=== PATIENT | female | born 1965 | race American Indian/Alaskan Native ===

== ENCOUNTER 2018-04-17 13:24 | Inpatient (IN) | payer MEDICAID ==
[2018-04-17 14:09] LABS: BASO % 0.8 % (0.0-2.0); EOS # 0.4 K/uL (0.0-0.7); EOS % 11.3 % (0.0-4.0); HCG,QUALITATIVE URINE NEGATIVE (NEGATIVE); HEMOGLOBIN 11.7 g/dL (11.0-16.0); LYMPH # 1.3 K/uL (1.0-4.3); LYMPH % 39.4 % (20.0-40.0); MEAN CELL VOLUME 87.6 fL (81.0-99.0); MEAN CORPUSCULAR HEMOGLOBIN 28.6 pg (27.0-31.0); MEAN CORPUSCULAR HGB CONC 32.7 g/dL (33.0-37.0); MEAN PLATELET VOLUME 7.7 fL (7.2-11.7); MONO # 0.3 K/uL (0.0-0.8); NEUT # 1.3 K/uL (1.8-7.0); NEUT % 38.5 % (50.0-75.0); NRBC % 0.3 % (0.0-2.0); RBC 4.09 Mil/uL (3.80-5.20); RED CELL DISTRIBUTION WIDTH 14.3 % (11.5-14.5); WHITE BLOOD COUNT 3.4 K/uL (4.8-10.8)
[2018-04-17 14:11] LABS: SQUAMOUS EPITHIAL 1 /hpf (0-5); URINE BACTERIA OCC (<OCC); URINE BILIRUBIN NEGATIVE (NEGATIVE); URINE BLOOD NEGATIVE (NEGATIVE); URINE CLARITY Hazy (Clear); URINE COLOR Yellow (YELLOW); URINE GLUCOSE (UA) NORMAL (Normal); URINE LEUKOCYTE ESTERASE 2+ Leu/uL (Negative); URINE PROTEIN NEGATIVE (NEGATIVE)
[2018-04-17 14:22] LABS: ALB/GLOB RATIO 0.8 (1.0-2.1); ALBUMIN 3.7 g/dL (3.5-5.0); ALT/SGPT 21 U/L (9-52); AST/SGOT 26 U/L (14-36); BLOOD UREA NITROGEN 13 mg/dL (7-17); GFR NON-AFRICAN AMERICAN > 60
[2018-04-17 14:45] LABS: BARBITURATES, UR NEGATIVE (NEGATIVE); BENZODIAZEPINES, UR NEGATIVE (NEGATIVE); PHENCYCLIDINE, UR NEGATIVE (NEGATIVE)
[2018-04-17 14:48] LABS: OPIATES, UR POSITIVE (NEGATIVE)
--- NOTE | 2018-04-17 15:10 | C.PDOC ---
History Of Present Illness 52 y/o female, w/PMhx of HIV, presents to the ER requesting detox from heroin and cocaine. Patient states that her last use was yesterday. Patient reports that her viral load CD4 count was checked last month and everything was "good." She notes that she has not been taking her antiviral medications in the " past few months." Denies IV drug use, ETOH use, and hx of seizures and/or withdrawals. Time Seen by Provider: 04/17/18 13:43 Chief Complaint (Nursing): Substance Abuse History Per: Patient History/Exam Limitations: no limitations Past Medical History Reviewed: Historical Data, Nursing Documentation, Vital Signs Vital Signs: Last Vital Signs Temp 98.5 F 04/17/18 13:29 Pulse 68 04/17/18 13:29 Resp 18 04/17/18 13:29 BP 106/75 04/17/18 13:29 Pulse Ox 98 04/17/18 13:29 - Medical History PMH: HIV Denies: Diabetes, Hepatitis, HTN, Seizures, Sexually Transmitted Disease Surgical History: No Surg Hx Family History: States: No Known Family Hx - Social History Hx Alcohol Use: Yes Hx Substance Use: Yes Review Of Systems Except As Marked, All Systems Reviewed And Found Negative. Physical Exam - Physical Exam Appears: Non-toxic, No Acute Distress, Other (thin, eating sandwich) Skin: Warm, Dry Head: Atraumatic, Normacephalic Eye(s): bilateral: Normal Inspection, EOMI Nose: Normal Oral Mucosa: Moist Neck: Normal ROM, Supple Chest: Symmetrical Cardiovascular: Rhythm Regular Respiratory: Normal Breath Sounds, No Rales, No Rhonchi, No Wheezing Gastrointestinal/Abdominal: Normal Exam, Soft, No Tenderness, No Guarding, No Rebound Extremity: Normal ROM Neurological/Psych: Oriented x3, Normal Speech ED Course And Treatment - Laboratory Results Result Diagrams: 04/17/18 14:01 04/17/18 14:01 O2 Sat by Pulse Oximetry: 98 (RA) Pulse Ox Interpretation: Normal Progress Note: Labs, UA, and HCG Qual. ordered. Patient was medically cleared for admisison and instructed to start antiviral medications again. Patient has been admitted under the service of for opiates. Disposition - Disposition Disposition: HOSPITALIZED Disposition Time: 17:00 Condition: STABLE - Clinical Impression Clinical Impression: Opioid use disorder, severe, dependence - PA / MATERIAL MAN / Resident Statement /DO has reviewed & agrees with the documentation as recorded. - Scribe Statement The provider has reviewed the documentation as recorded by the Joeibe Minor Olmos Provider Attestation All medical record entries made by the Joeibmichael were at my direction and personally dictated by me. I have reviewed the chart and agree that the record accurately reflects my personal performance of the history, physical exam, medical decision making, and the department course for this patient. I have also personally directed, reviewed, and agree with the discharge instructions and disposition.
--- NOTE | 2018-04-17 15:32 | PCM.BM ---
<Garrett Nelson - Last Filed: 04/17/18 15:31> Treatment Plan Problems - Problems identified on initial assessmt potential for opiate withdrawal Date Initiated: 04/17/18 Time Initiated: 15:31 Status: Active Treatment assets and liabiliti Patient Assests: cognitively intact Patient Liabilities: substance abuse, medical problems - Milieu Protocol Maintain good personal hygiene: daily Encourage regular showers, daily Remind patient to perform daily oral care, daily Assist patient to perform ADL's Maintain personal safety: every shift Educate patient to report safety concerns to staff, every shift Monitor environment for contraband/sharps Medication safety: Monitor for expected outcome, potential side effects: every shift, Assess barriers to learning: every shift, Assess readiness for medication education: every shift <Jaimie Lopez - Last Filed: 04/18/18 14:15> Family Contact Family involvement: Famliy/SO not involved - Goals for Treatment Patient goals for treatment: Complete detox and apply for inpatient rehab program. Discharge/Continuing Care - Education Needs Education Needs: Family Medication, Family Diagnosis/Disease Process, Family Placement options, Family Community resources, Patient Medication, Patient Diagnosis/Disease Process, Patient Coping Skills, Patient Anger Management skills, Patient Placement options, Patient Community resources - Discharge Discharge Criteria: Ability to care for self, No longer exhibiting s/s of withdrawal, Reduction of target symptoms Discharge to:: Substance Abuse Rehab - Treatment Team Participation Patient/Family/SO Statement: 04/18/18 14:16 "I wanna go inpatient after this..." Discussed with Family/SO: No Was Patient/Family/SO present at Treatment Team Meeting: Yes <María Elena Mejia - Last Filed: 04/19/18 08:53> - Diagnosis (1) Opioid use disorder, severe, dependence Status: Acute Interventions: 04/19/18 08:53 * Assess 7x/week regarding severity of withdrawal * Educate regarding risks, benefits, side effects and alternatives of medications * Use Motivational Interviewing for abstinence * Use CBT for relapse prevention * Medication management for withdrawal symptoms * Encourage medication assisted treatment *
[2018-04-17] MEDS ORDERED: Buprenorphine Hydrochloride 2 mg SL ONE ×2 (16:28→17:30)
[2018-04-18] MEDS ORDERED: Aluminum Hydroxide/Magnesium Hydroxide Susp (30 mL) PO PRN (08:51)
[2018-04-18] MEDS: Buprenorphine Hydrochloride 2 mg SL SCH (09:20)
--- NOTE | 2018-04-18 12:24 | PCM.PSYCH ---
Initial Psychiatric Evaluation - Initial Psychiatric Evaluation Type of Admission: Voluntary Legal Status: Capacity Chief Complaint (in patient's own words): "I want detox" History of Present Illness and Precipitating Events: She is seen, chart reviewed and case discussed She is apoor historian and due to withdrawals she was barely cooperative. Pt is a 52 year old female. Pt reports abusing heroin and crack cocaine on a daily basis, with last use of both substances on 04/16/18. Pt reports pattern of use as follows: pt uses 3 bags of heroin daily via intranasal use x2 years; $20 worth of crack cocaine is being smoked daily x2 years. Pt reports active w/d symptoms present: hot/cold flashes, restless legs, back pain, runny nose, abdominal cramps, and diarrhea. Pt first started using heroin x2 years ago following the of her daughter who was 31 at the time. Daughter in her sleep likely due to a seizure. Pt was having sleep disturbance and was introduced to heroin by a peer, and became addicted immediately. Pt reports using crack cocaine initially in her 's, and was in two rehabs in the , which was her last substance abuse treatment at [facility] and [facility] in [place], [place]. Pt denies S/I; H/I; A/V/T hallucinations and history of same. Pt denies psychiatric diagnoses and treatment of same. Howevere, she is still grieving and looks depressed, malnourished and is anhedonic. Pt is diagnosed with HIV and has been medication non-compliant for "a few months since my last prescription ran out." Pt is unable to provide the name of her medication, and to obtain it from her recovery analyst, Jenny. Per Jenny, pt medication list is as follows: Prescribed medication was provided by recovery analyst at [facility]: Albuterol, Abacavir, Dolutegravir, Lamivudine. Pt denies history of seizures/DT's. Current Medications: Active Medications Generic Name Dose Route Start Last Admin Trade Name Freq PRN Reason Stop Dose Admin Al Hydrox/Mg Hydrox/Simethicone 30 ml 04/18/18 08:51 Maalox 30 Ml PO TID PRN Indigestion / Heartburn Buprenorphine HCl 8 mg 04/18/18 10:00 04/18/18 09:20 Subutex SL 04/23/18 09:59 8 mg DAILY [facility] Administration Taper Clonidine HCl 0.1 mg 04/17/18 16:27 04/17/18 21:56 Catapres PO 0.1 mg Q4 PRN Administration Anxiety Dicyclomine HCl 10 mg 04/18/18 10:07 Bentyl PO Q6H PRN cramps Hydroxyzine HCl 25 mg 04/17/18 16:30 Atarax PO PRN PRN Anxiety Ibuprofen 400 mg 04/18/18 10:07 Motrin Tab PO Q6H PRN Pain, moderate (4-7) Loperamide HCl 2 mg 04/18/18 08:51 Imodium PO Q8 PRN Diarrhea Mirtazapine 15 mg 04/18/18 22:00 Remeron PO HS [facility] Ondansetron HCl 4 mg 04/18/18 08:51 Zofran Tab PO Q8 PRN Nausea/Vomiting Trazodone HCl 50 mg 04/18/18 10:14 Desyrel PO HS PRN Insomnia Past Psychiatric History - Past Psychiatric History Previous Treatment History: None Pertinent Medical Hx (Current Medical&Sleep Prob, Allergies): Allergies Allergy/AdvReac Type Severity Reaction Status Date / Time No Known Allergies Allergy Unverified 04/17/18 13:33 Unobtainable 04/17/18 Review of Systems - Neurological Neurological: Tremor - Psychiatric Psychiatric: Abnormal Sleep Pattern, Anhedonia, Anxiety, Change in Appetite, Depression, Difficulty Concentrating, Irritability, Memory Loss, Mood Swings. absent: Hallucinations, Homicidal Ideation, Paranoia, Suicidal Ideation Mental Status Examination - Personal Presentation Personal Presentation: Looks older than stated age (at least 20 yrs older) - Affect Affect: Constricted - Motor Activity Motor Activity: Calm - Reliability in Providing Information Reliability in Providing Information: Fair - Speech Speech: Organized - Mood Mood: Depressed, Anxious - Formal Thought Process Formal Thought Process: No Impairment - Cognitive Functions Orientation: Person, Place, Situation, Time Sensorium: Drowsy Attention/Concentration: Easily distracted Abstract Thinking: Meredith Estimate of Intelligence: Below average Judgement: Intact, as evidence by: Insight regarding need for hospitalization Memory: Recent intact, as evidence by: Ability to recall events of the day, Remote impaired as evidenced by: Inability to recall sig life events - Risk Risk: Withdrawal, Diminished functioning - Strength & Assets Inventory Strength & Assets Inventory: Life experience - Limitations Limitations: Living alone DSM 5 DX - DSM 5 DSM 5 Diagnosis: Opioid withdrawal Opioid use d/o -severe Cocaine use d/o - severe Depressive d/o- unspecified - Recommended/Plan of Treatment Treatment Recommendations and Plan of Treatment: Taper with Subutex Remeron for depression and insomnia Vitamins and ensure As needed medications All risks, benefits and alternatives of the meds discussed, and the patient agreed and understood. Attends groups and activities Supportive therapy and psychoeducation MA for abstinence CBT for relapse prevention Encourage MAT Refer to rehab or IOP, and self-help groups Teach healthy lifestyle methods, i.e. diet, exercise, meditation Smoking cessation with MA Nicotine patch if needed 34 min Projected ELOS: 5 days Prognosis: good w treatment - Smoking Cessation Smoking Cessation Initiated: Yes
[2018-04-18] MEDS: Multiple Vitamins Tab PO SCH (13:23)
[2018-04-19] MEDS: Multiple Vitamins Tab PO SCH (10:05)
[2018-04-19] MEDS: Buprenorphine Hydrochloride 2 mg SL SCH ×2 (10:40→10:51)
--- NOTE | 2018-04-19 17:11 | CP.PCM.CON ---
History of Present Illness - History of Present Illness History of Present Illness: 52 y/o female, w/PMhx of HIV, presents to the ER requesting detox from heroin and cocaine. Patient reports that her viral load CD4 count was checked last month and everything was "good." She notes that she has not been taking her anti viral medications in the " past few months." wants to resume her HAART rx last filled in october 2017 diagnosed in 1989 - HIV /AIDS at the time with low T cells on Bacrtrim at the time 3 x /weekly - Medical History PMH: HIV Denies: Diabetes, Hepatitis, HTN, Seizures, Sexually Transmitted Disease Surgical History: No Surg Hx Family History: DM II Review of Systems - Review of Systems All systems: reviewed and no additional remarkable complaints except - Constitutional Constitutional: As Per HPI. absent: Chills, Fever, Headache - EENT Eyes: absent: As Per HPI, Blind Spots, Blurred Vision, Change in Vision, Decreased Night Vision, Diplopia, Discharge, Dry Eye, Exophthalmos, Floaters, Irritation, Itchy Eyes, Loss of Peripheral Vision, Pain, Photophobia, Requires Corrective Lenses, Sees Flashes, Spots in Vision, Tunnel Vision, Other Visual Disturbances, Loss of Vision, Other Ears: absent: As Per HPI, Decreased Hearing, Ear Discharge, Ear Pain, Tinnitus, Abnormal Hearing, Disequilibrium, Dizziness, Other Nose/Mouth/Throat: absent: As Per HPI, Epistaxis, Nasal Congestion, Nasal Discharge, Nasal Obstruction, Nasal Trauma, Nose Pain, Post Nasal Drip, Sinus Pain, Sinus Pressure, Bleeding Gums, Change in Voice, Dental Pain, Dry Mouth, Dysphagia, Halitosis, Hoarsness, Lip Swelling, Mouth Lesions, Mouth Pain, Odynophagia, Sore Throat, Throat Swelling, Tongue Swelling, Facial Pain, Neck Pain, Neck Mass, Other - Cardiovascular Cardiovascular: absent: As Per HPI, Acrocyanosis, Chest Pain, Chest Pain at Rest, Chest Pain with Activity, Claudication, Diaphoresis, Dyspnea, Dyspnea on Exertion, Edema, Irregular Heart Rhythm, Pain Radiating to Arm/Neck/Jaw, Leg E neo, Leg Ulcers, Lightheadedness, Orthopnea, Palpitations, Paroxysmal Nocturnal Dyspnea, Pedal Edema, Radiating Pain, Rapid Heart Rate, Slow Heart Rate, Syncope, Other - Respiratory Respiratory: absent: As Per HPI, Cough, Dyspnea, Hemoptysis, Dyspnea on Exerti on, Wheezing, Snoring, Stridor, Pain on Inspiration, Chest Congestion, Excessive Mucous Production, Change in Mucous Color, Pain with Coughing, Other - Gastrointestinal Gastrointestinal: absent: As Per HPI, Abdominal Pain, Belching, Bloating, Change in Bowel Habits, Change in Stool Character, Coffee Ground Emesis, Constipation, Cramping, Diarrhea, Dyspepsia, Dysphagia, Early Satiety, Excessive Flatus, Fecal Incontinence, Heartburn, Hematemesis, Hematochezia, Loose Stools, Melena, Nausea, Odynophagia, Temesmus, Vomiting, Other - Genitourinary Genitourinary: absent: As Per HPI, Change in Urinary Stream, Difficulty Ur inating, Dysuria, Flank Pain, Hematuria, Pyuria, Nocturia, Urinary Incontinence, Urinary Frequency, Urinary Hesitance, Urinary Urgency, Voiding Freq/Small Amts, Freq UTI, Hx Renal/Bladder Calculi, Hx /Renal Surgery, Bladder Distension, Other - Reproductive: Female Reproductive:Female: absent: As Per HPI, Amenorrhea, Amenorrhea/ Control, Currently Menstual, Cycle <21 Days, Cycle >35 Days, Cycle Variable, Menses 1-7 Days, Menses >/= 8 Days, Menses Variable, Cycle > 4 Weeks Between, No Menses for 6 Months, Heavy Menses, Light Menses, Normal Menses, Spotting Between Cycles, S/P Hysterectomy, Menopausal, Post Menopausal, Premenarche, Abnormal Vaginal Bleeding, Dysmenorrhea, Dyspareunia, Genital Lesions, Genital Pruritis, Pelvic Pain, Prolapse Symptoms, Sexual Dysfunction, Vaginal Discharge, Vaginal Dryness, Vaginal Odor, Vaginal Pruritis, Other - Menstruation Menstruation: absent: As Per HPI, Amenorrhea, Amenorrhea/ Control, Currently Menstual, Cycle <21 Days, Cycle >35 Days, Cycle Variable, Menses 1-7 Days, Menses >/= 8 Days, Menses Variable, Cycle > 4 Weeks Between, No Menses for 6 Months, Heavy Menses, Light Menses, Normal Menses, Spotting Between Cycles, S/P Hysterectomy, Menopausal, Post Menopausal, Premenarche, Abnormal Vaginal Bleeding, Dysmenorrhea, Other - Musculoskeletal Musculoskeletal: absent: As Per HPI, Abnormal Gait, Arthralgias, Atrophy, Back Pain, Deformity, Joint Swelling, Limited Range of Motion, Loss of Height, Muscle Cramps, Muscle Weakness, Myalgias, Neck Pain, Numbness, Radiating Pain into Limb, Stiffness, Tingling, Other - Integumentary Integumentary: absent: As Per HPI, Acne, Alopecia, Bleeding Lesions, Change in Hair, Change in Nails, Change in Pigmentation, Changing Lesions, Dry Skin, Erythema, Furuncle, Hirsutism, Lesions, New Lesions, Non-Healing Lesions, Photosensitivity, Pruritus, Rash, Skin Pain, Skin Ulcer, Sores, Striae, Swelling, Unusual Bruising, Wounds, Jaundice, Other - Neurological Neurological: absent: As Per HPI, Abnormal Gait, Abnormal Hearing, Abnormal Movements, Abnormal Speech, Behavioral Changes, Burning Sensations, Confusion, Convulsions, Disequilibrium, Dizziness, Numbness, Focal Weakness, Frequent Falls, Headaches, Lack of Coordination, Loss of Vision, Memory Loss, Paresthesias, Radicular Pain, Restless Legs, Sensory Deficit, Syncope, Tingling, Tremor, Vertigo, Weakness, Other Visual Disturbances, Other - Psychiatric Psychiatric: As Per HPI - Endocrine Endocrine: absent: As Per HPI, Change in Body Appearance, Change in Libido, Cold Intolorance, Deepening of Voice, Excessive Sweating, Fatigue, Flushing, Heat Intolorance, Increase in Ring/Shoe/Hat Size, Palpitations, Polydipsia, Polyphagia, Polyuria, Other - Hematologic/Lymphatic Hematologic: absent: As Per HPI, Easy Bleeding, Easy Bruising, Lymphadenopathy, Other Past Patient History - Past Social History Smoking Status: Heavy Smoker > 10 Cigarettes Daily - CARDIAC Hx Cardiac Disorders: No Hx Angina: No Hx Congestive Heart Failure: No Hx Heart Attack: No Hx Heart Murmur: No Hx Hypercholesterolemia: No Hx Hypertension: No Hx Hypotension: No Hx Mitral Valve Prolapse: No Hx Peripheral Edema: No Hx Peripheral Vascular Disease: No - PULMONARY Hx Respiratory Disorders: No Hx Asthma: No Hx Bronchitis: No Hx Pneumonia: No Hx Pulmonary Edema: No Hx Pulmonary Embolism: No Hx Respiratory Tract Infection: No Hx Sleep Apnea: No Hx Tuberculosis: No - NEUROLOGICAL Hx Neurological Disorder: No Hx Dizziness: No Hx Meningitis: No Hx Migraine: No Hx Paralysis: No Hx Seizures: No Hx Syncope: No Hx Vertigo: No - HEENT Hx Deafness: No Hx Epistaxis: No Hx Glaucoma: No - RENAL Hx Dialysis: No Hx Kidney Stones: No Hx Neurogenic Bladder: No Hx Pyelonephritis: No Hx Renal Failure: No - ENDOCRINE/METABOLIC Hx Endocrine Disorders: No Hx Diabetes Insipidus: No Hx Diabetes Mellitus Type 1: No Hx Diabetes Mellitus Type 2: No Hx Hyperthyroidism: No Hx Hypothyroidism: No Hx Systemic Lupus Erythematosus: No - HEMATOLOGICAL/ONCOLOGICAL Hx Blood Disorders: Yes Hx Cancer: No Hx Human Immunodeficiency Virus (HIV): Yes - INTEGUMENTARY Hx Hylton: No Hx Cellulitis: No Hx Eczema: No Hx Psoriasis: No - MUSCULOSKELETAL/RHEUMATOLOGICAL Hx Falls: No - GASTROINTESTINAL Hx Gastrointestinal Disorders: No Hx Crohn's Disease: No Hx Gall Bladder Disease: No Hx Gastritis: No Hx Gastroesophageal Reflux: No Hx Pancreatitis: No Hx Ulcer: No - GENITOURINARY/GYNECOLOGICAL Hx Hematuria: No - PSYCHIATRIC Hx Substance Use: Yes - SURGICAL HISTORY Hx Surgeries: No - ANESTHESIA Hx Anesthesia: No Meds Allergies/Adverse Reactions: Allergies Allergy/AdvReac Type Severity Reaction Status Date / Time No Known Allergies Allergy Unverified 04/17/18 13:33 - Medications Medications: Current Medications Abacavir/Lamivudine (Epzicom) 1 tab PO DAILY [facility]; Protocol Al Hydrox/Mg Hydrox/Simethicone (Maalox 30 Ml) 30 ml PO TID PRN PRN Reason: Indigestion / Heartburn Buprenorphine HCl (Subutex) 6 mg SL DAILY [facility]; Taper Stop: 04/23/18 09:59 Last Admin: 04/19/18 10:51 Dose: 6 mg Clonidine HCl (Catapres) 0.1 mg PO Q4 PRN PRN Reason: Anxiety Last Admin: 04/17/18 21:56 Dose: 0.1 mg Dicyclomine HCl (Bentyl) 10 mg PO Q6H PRN PRN Reason: cramps Dolutegravir Sodium (Tivicay) 50 mg PO DAILY [facility]; Protocol Hydroxyzine HCl (Atarax) 25 mg PO PRN PRN PRN Reason: Anxiety Last Admin: 04/18/18 13:26 Dose: 25 mg Ibuprofen (Motrin Tab) 400 mg PO Q6H PRN PRN Reason: Pain, moderate (4-7) Loperamide HCl (Imodium) 2 mg PO Q8 PRN PRN Reason: Diarrhea Mirtazapine (Remeron) 15 mg PO HS [facility] Last Admin: 04/18/18 21:40 Dose: 15 mg Multivitamins (Hexavitamin) 1 tab PO DAILY [facility] Last Admin: 04/19/18 10:05 Dose: 1 tab Nicotine (Nicoderm Cq) 1 patch TD DAILY [facility] Last Admin: 04/19/18 10:05 Dose: 1 patch Ondansetron HCl (Zofran Tab) 4 mg PO Q8 PRN PRN Reason: Nausea/Vomiting Trazodone HCl (Desyrel) 50 mg PO HS PRN PRN Reason: Insomnia Physical Exam - Constitutional Appears: Non-toxic, Chronically Ill - Head Exam Head Exam: ATRAUMATIC, NORMAL INSPECTION, NORMOCEPHALIC - Eye Exam Eye Exam: EOMI, PERRL. absent: Scleral icterus - ENT Exam ENT Exam: Mucous Membranes Dry, Normal External Ear Exam, Normal Oropharynx - Neck Exam Neck exam: Negative for: Lymphadenopathy - Respiratory Exam Respiratory Exam: Decreased Breath Sounds, Clear to Auscultation Bilateral - Cardiovascular Exam Cardiovascular Exam: REGULAR RHYTHM, +S1, +S2 - GI/Abdominal Exam GI & Abdominal Exam: Diminished Bowel Sounds, Soft. absent: Tenderness - Rectal Exam Rectal Exam: Deferred - Exam Exam: NORMAL INSPECTION - Extremities Exam Extremities exam: Negative for: pedal edema - Back Exam Back exam: absent: CVA tenderness (L), CVA tenderness (R) - Neurological Exam Neurological exam: Alert, CN II-XII Intact, Oriented x3, Reflexes Normal - Psychiatric Exam Psychiatric exam: Normal Mood - Skin Skin Exam: Dry Results - Vital Signs Recent Vital Signs: Last Vital Signs Temp 98 F 04/19/18 16:29 Pulse 81 04/19/18 16:29 Resp 18 04/19/18 16:29 BP 111/75 04/19/18 16:29 Pulse Ox 99 04/19/18 16:29 - Labs Result Diagrams: 04/17/18 14:01 04/17/18 14:01 Assessment & Plan (1) HIV (human immunodeficiency virus infection) Status: Acute (2) Opioid use disorder, severe, dependence Status: Acute - Assessment and Plan (Free Text) Assessment: will restart HAART rx will check T cells and viral load no need for PCP Prophylaxis at this time
[2018-04-20] MEDS: Multiple Vitamins Tab PO SCH (10:03)
[2018-04-20] MEDS: Abacavir/Lamivudine 600 mg-300 mg Tab PO SCH (10:03)
[2018-04-20] MEDS: Buprenorphine Hydrochloride 2 mg SL SCH (10:04)
[2018-04-20] MEDS ORDERED: Buprenorphine Hydrochloride 2 mg SL ONE (18:00)
[2018-04-21 08:48] LABS: HEPATITIS B SURFACE AG Negative (NEGATIVE)
[2018-04-21 08:54] LABS: HEPATITIS A IGM NEGATIVE (NEGATIVE); HEPATITIS B CORE AB NEGATIVE (NEGATIVE)
[2018-04-21 09:06] LABS: HEPATITIS C ANTIBODY NEGATIVE (NEGATIVE)
[2018-04-21] MEDS: Multiple Vitamins Tab PO SCH (10:42)
[2018-04-21] MEDS: Abacavir/Lamivudine 600 mg-300 mg Tab PO SCH (10:42)
[2018-04-21] MEDS: Buprenorphine Hydrochloride 2 mg SL SCH (10:43)
--- NOTE | 2018-04-21 15:13 | CP.PCM.PN ---
Subjective - Date & Time of Evaluation Date of Evaluation: 04/21/18 Time of Evaluation: 07:00 - Subjective Subjective: HIV reactive T cells and viral load pending Hep C negative Objective - Vital Signs/Intake and Output Vital Signs (last 24 hours): Temp Pulse Resp BP Pulse Ox 98.9 F 87 18 95/69 L 99 04/21/18 12:56 04/21/18 12:56 04/21/18 12:56 04/21/18 12:56 04/21/18 12:56 - Medications Medications: Current Medications Abacavir/Lamivudine (Epzicom) 1 tab PO DAILY [facility]; Protocol Last Admin: 04/21/18 10:42 Dose: 1 tab Al Hydrox/Mg Hydrox/Simethicone (Maalox 30 Ml) 30 ml PO TID PRN PRN Reason: Indigestion / Heartburn Buprenorphine HCl (Subutex) 2 mg SL DAILY [facility]; Taper Stop: 04/23/18 09:59 Last Admin: 04/21/18 10:43 Dose: 2 mg Clonidine HCl (Catapres) 0.1 mg PO Q4 PRN PRN Reason: Anxiety Last Admin: 04/17/18 21:56 Dose: 0.1 mg Dicyclomine HCl (Bentyl) 10 mg PO Q6H PRN PRN Reason: cramps Dolutegravir Sodium (Tivicay) 50 mg PO DAILY [facility]; Protocol Last Admin: 04/21/18 10:42 Dose: 50 mg Hydroxyzine HCl (Atarax) 25 mg PO PRN PRN PRN Reason: Anxiety Last Admin: 04/19/18 17:49 Dose: 25 mg Ibuprofen (Motrin Tab) 400 mg PO Q6H PRN PRN Reason: Pain, moderate (4-7) Last Admin: 04/21/18 13:10 Dose: 400 mg Loperamide HCl (Imodium) 2 mg PO Q8 PRN PRN Reason: Diarrhea Mirtazapine (Remeron) 15 mg PO HS [facility] Last Admin: 04/20/18 21:36 Dose: 15 mg Multivitamins (Hexavitamin) 1 tab PO DAILY [facility] Last Admin: 04/21/18 10:42 Dose: 1 tab Nicotine (Nicoderm Cq) 1 patch TD DAILY [facility] Last Admin: 04/21/18 10:42 Dose: 1 patch Ondansetron HCl (Zofran Tab) 4 mg PO Q8 PRN PRN Reason: Nausea/Vomiting Last Admin: 04/20/18 10:03 Dose: 4 mg Trazodone HCl (Desyrel) 50 mg PO HS PRN PRN Reason: Insomnia - Labs Labs: 04/17/18 14:01 04/17/18 14:01 Assessment and Plan (1) HIV (human immunodeficiency virus infection) Status: Acute (2) Opioid use disorder, severe, dependence Status: Acute
--- NOTE | 2018-04-21 18:28 | PCM.PYCHPN ---
Psychiatric Progress Note - Psychiatric Progress Note Patient seen today, length of contact: 15 minutes Patient Chief Complaint: I'm feeling little better as a having body aches. Problems Identified/Issues Discussed: Patient seen, chart reviewed, case discussed with the staff. Issues related to illness and treatment were discussed with the patient and staff. Reported compliant with treatment with no adverse affects. Tolerating treatment very well. Patient reported feeling little better with her treatment. Calm and cooperative. Awake, alert and oriented 3. No psychomotor activity, good eye contact, memory intact. Aftercare discussed with the patient. Denied any delusions, auditory or visual hallucinations, suicidal ideations or homicidal ideations at the time of evaluation. Medical Problems: HIV Diabetes mellitus UTI Diagnostic Results: Reviewed DSM 5 Symptoms Update: Some improvement with treatment Medication Change: No Medical Record Reviewed: Yes Consults ordered or reviewed: Reviewed Mental Status Examination - Cognitive Function Orientation: Person, Place, Situation, Time Memory: Intact Attention: WNL Concentration: WNL Association: WNL Fund of Knowledge: [facility] Decription of patient's judgement and insights: Fair - Mood Mood: Depressed - Affect Affect: Depressed - Speech Speech: Appropriate - Formal Thought Process Formal Thought Process: No Impairment Psychotic Thoughts and Behaviors: None - Suicidal Ideation Suicidal Ideation: No - Homicidal Ideation Homicidal Ideation: No Goal/Treatment Plan - Goal/Treatment Plan Need for Continued Stay: Remain at risks for inpatient hospitalization, Discharge may exacerbated symptoms, Severe functional impairment Progress Toward Problem(s) and Goals/Treatment Plan: Patient education. Supportive therapy. CBT for relapse prevention. HI for abstinence. Continue rest of the treatment as before. Patient wants to go to either [facility] or [facility] for follow-up care after discharge from the hospital. Estimated Date of D/C: 04/23/18 - Smoking Cessation Smoking Cessation Initiated: Yes
--- NOTE | 2018-04-21 22:53 | PCM.PYCHPN ---
Psychiatric Progress Note - Psychiatric Progress Note Patient seen today, length of contact: 15 minutes Patient Chief Complaint: "I'm still withdrawing" Problems Identified/Issues Discussed: The pt is seen, chart reviewed, case discussed with staff. The pt is compliant with medications and reports no side-effects. Symptoms are improving but needs more time to stabilize. After care discussed, support and psychoeducation given. Medication Change: Yes (detox changes daily) Medical Record Reviewed: Yes Mental Status Examination - Cognitive Function Orientation: Person, Place, Situation, Time Memory: Intact Attention: WNL Concentration: WNL Association: WNL Fund of Knowledge: WNL - Mood Mood: Depressed - Affect Affect: Depressed - Speech Speech: Appropriate - Formal Thought Process Formal Thought Process: No Impairment - Suicidal Ideation Suicidal Ideation: No - Homicidal Ideation Homicidal Ideation: No Goal/Treatment Plan - Goal/Treatment Plan Need for Continued Stay: Remain at risks for inpatient hospitalization, Discharge may exacerbated symptoms, Severe functional impairment Progress Toward Problem(s) and Goals/Treatment Plan: Taper with Subutex Remeron for depression and insomnia Vitamins and ensure As needed medications All risks, benefits and alternatives of the meds discussed, and the patient agreed and understood. Attends groups and activities Supportive therapy and psychoeducation MA for abstinence CBT for relapse prevention Encourage MAT Refer to rehab or IOP, and self-help groups Teach healthy lifestyle methods, i.e. diet, exercise, meditation Smoking cessation with MA Nicotine patch if needed Estimated Date of D/C: 04/23/18
[2018-04-22] MEDS: Abacavir/Lamivudine 600 mg-300 mg Tab PO SCH (10:31)
[2018-04-22] MEDS: Buprenorphine Hydrochloride 2 mg SL SCH (10:31)
[2018-04-22] MEDS: Multiple Vitamins Tab PO SCH (10:31)
--- NOTE | 2018-04-22 11:46 | PCM.PYCHPN ---
Psychiatric Progress Note - Psychiatric Progress Note Patient seen today, length of contact: 15 minutes Patient Chief Complaint: "I'm still withdrawing" Problems Identified/Issues Discussed: The pt is seen, chart reviewed, case discussed with staff. The pt is compliant with medications and reports no side-effects. Symptoms are improving but needs more time to stabilize. has mild cold sxs Pt attends groups and activities. Support given, psycho-education provided. After care discussed. Medication Change: Yes (detox changes daily) Medical Record Reviewed: Yes Mental Status Examination - Cognitive Function Orientation: Person, Place, Situation, Time Memory: Intact Attention: WNL Concentration: WNL Association: WNL Fund of Knowledge: WNL - Mood Mood: Depressed - Affect Affect: Depressed - Speech Speech: Appropriate - Formal Thought Process Formal Thought Process: No Impairment - Suicidal Ideation Suicidal Ideation: No - Homicidal Ideation Homicidal Ideation: No Goal/Treatment Plan - Goal/Treatment Plan Need for Continued Stay: Remain at risks for inpatient hospitalization, Discharge may exacerbated symptoms, Severe functional impairment Progress Toward Problem(s) and Goals/Treatment Plan: Taper with Subutex Remeron for depression and insomnia Vitamins and ensure As needed medications All risks, benefits and alternatives of the meds discussed, and the patient agreed and understood. Attends groups and activities Supportive therapy and psychoeducation MT for abstinence CBT for relapse prevention Encourage MAT Refer to rehab or IOP, and self-help groups - She is accepted by [facility] Teach healthy lifestyle methods, i.e. diet, exercise, meditation Smoking cessation with MT Nicotine patch if needed Estimated Date of D/C: 04/23/18
--- NOTE | 2018-04-23 08:29 | PCM.PYCHDC ---
Mental Status Examination - Mental Status Examination Orientation: Person, Place, Situation, Time Memory: Intact Mood: Anxious Affect: Constricted Speech: Appropriate Attention: WNL Concentration: WNL Association: WNL Fund of Knowledge: WNL Formal Thought Process: No Impairment Suicidal Ideation: No Current Homicidal Ideation?: No Discharge Summary - Discharge Note Reason for Hospitalization: Opioid detox Consultations:: List each consultation separately and include: 1. Reason for request. 2. Findings. 3. Follow-up Consultations: ID saw her and her HIV meds resumed. Summary of Hospital Course include:: 1. Description of specific treatment plan utilized for patients during their course of treatmen. 2. Summarize the time- course for resolution of acute symptoms and/or regressed behaviors. 3. Describe issues identified and worked on during hospitalization. 4. Describe medication utilized. 5. Describe medical problems identified and treated. 6. Reassessment of suicide risk Summary of Hospital Course: On Admission: She is seen, chart reviewed and case discussed She is a poor historian and due to withdrawals she was barely cooperative. Pt is a 52 year old female. Pt reports abusing heroin and crack cocaine on a daily basis, with last use of both substances on 04/16/18. Pt reports pattern of use as follows: pt uses 3 bags of heroin daily via intranasal use x2 years; $20 worth of crack cocaine is being smoked daily x2 years. Pt reports active w/d symptoms present: hot/cold flashes, restless legs, back pain, runny nose, abdominal cramps, and diarrhea. Pt first started using heroin x2 years ago following the of her daughter who was 31 at the time. Daughter in her sleep likely due to a seizure. Pt was having sleep disturbance and was introduced to heroin by a peer, and became addicted immediately. Pt reports using crack cocaine initially in her 20's, and was in two rehabs in the , which was her last substance abuse treatment at [facility] and [facility] in [place], [place]. Pt denies S/I; H/I; A/V/T hallucinations and history of same. Pt denies psychiatric diagnoses and treatment of same. Howevere, she is still grieving and looks depressed, malnourished and is anhedonic. Pt is diagnosed with HIV and has been medication non-compliant for "a few months since my last prescription ran out." Pt is unable to provide the name of her medication, and to obtain it from her business applications specialist, Jenny. Per Jenny pt medication list is as follows: Prescribed medication was provided by business applications specialist at [facility]: Albuterol, Abacavir, Dolutegravir, Lamivudine. Pt denies history of seizures/DT's. Hospital course: The pt was admitted and started on treatment with psychotherapy, support, psychoeducation and medications. MA and CBT used. The pt attended groups and activities, as well as milieu therapy. All the risks and benefits of medications are discussed and the patient understood and agreed. The pt improved with the treatments provided. After care discussed with the patient. Pt went to [facility]. She was at times med-seeking and very anxious. MA used repeatedly. - Final Diagnosis (DSM 5) Condition upon Discharge: STABLE DSM 5: Opioid withdrawal Opioid use d/o -severe Cocaine use d/o - severe Depressive d/o- unspecified Disposition: REHAB FACILITY/REHAB UNIT Follow-up Treatment Plan: Continue below medications after discharge. Follow after care plan as discussed. Use relapse prevention skills Return to ER or call 911 if suicidal, homicidal or symptoms relapse. Stay away from stress, alcohol and drugs. See primary doctor regularly and get labs. Prescriptions/Medication Reconciliation: Abacavir Sulfate/Lamivudine [Epzicom] 1 tab PO DAILY #30 tab Dolutegravir Sodium [Tivicay] 50 mg PO DAILY #30 tab Mirtazapine [Remeron] 15 mg PO HS #30 tab Nitrofurantoin Macrocrystals [Macrobid] 100 mg PO Q12H #8 cap traZODone [Desyrel] 50 mg PO HS PRN #30 tab PRN Reason: Insomnia
[2018-04-23] MEDS: Multiple Vitamins Tab PO SCH (08:59)
[2018-04-23] MEDS: Abacavir/Lamivudine 600 mg-300 mg Tab PO SCH (09:08)
[2018-04-23 10:13] VITALS: BP 109/74; PULSE 72; RESP 20; TEMP 98.2; O2SAT 99
[2018-04-23 12:22] LABS: % CD4 (T HELPER CELL) 19 Percent (30-61); % CD8 (SUPPRESSOR T CELL) 40 Percent (12-42); ABSOLUTE CD4 CELLS 220 Cells/mcL (490-1740); ABSOLUTE CD8 CELLS 449 Cells/mcL (180-1170); ABSOLUTE LYMPHOCYTES 1130 Cells/mcL (850-3900); HELPER/SUPPRESSOR RATIO 0.49 Ratio (0.86-5.00)
== END 2018-04-23 10:00 | disposition home or self-care (01) | DRG 715 ==
LOC: C.ER 13:24 → C.7D 15:04
PROVIDERS: ADMIT Psychiatry & Neurology Psychiatry; ATTEND Psychiatry & Neurology Psychiatry
PROC: HZ2ZZZZ Detoxification Services for Substance Abuse Treatment (ICD-10-PCS; principal; 2018-04-17)
PROC: HZ59ZZZ Individual Psychotherapy for Substance Abuse Treatment, Supportive (ICD-10-PCS; 2018-04-17)
PROC: GZ3ZZZZ Medication Management (ICD-10-PCS; 2018-04-17)
PROC: HZ80ZZZ Medication Management for Substance Abuse Treatment, Nicotine Replacement (ICD-10-PCS; 2018-04-17)
PROC: HZ46ZZZ Group Counseling for Substance Abuse Treatment, Psychoeducation (ICD-10-PCS; 2018-04-17)
DX: F11.23 Opioid dependence with withdrawal (principal); B20 Human immunodeficiency virus [HIV] disease; N39.0 Urinary tract infection, site not specified; F14.20 Cocaine dependence, uncomplicated; E11.9 Type 2 diabetes mellitus without complications; F32.9 Major depressive disorder, single episode, unspecified; G25.81 Restless legs syndrome; G47.00 Insomnia, unspecified; F17.210 Nicotine dependence, cigarettes, uncomplicated; Z91.14 Patient's other noncompliance with medication regimen